=== PATIENT | male | born 1960 | race Caucasian/White ===

== ENCOUNTER → 2017-02-19 | Outpatient (CLI) | payer OTHER ==
[2017-02-19 12:42] LABS: BICARBONATE 27.4 MEQ/L (21.0-32.0)
== END ==
LOC: CLAB 11:33
PROVIDERS: ATTEND Nurse Practitioner Family
DX: I10 Essential (primary) hypertension (principal)
CPT/HCPCS: 36415; 80048

== ENCOUNTER 2017-04-23 08:42 | Emergency (ER) | payer OTHER ==
[~2017-04-23] VITALS: Ht 167.6 cm; Wt 80.0 kg
[~2017-04-23 08:42] MED LIST: FURO1TAB62 PO; GLIP10TA6 PO; GLUCTES27; LISI40TA PO; METF1000 PO; METO-309 PO; POTA10CA PO; PRAV20TA2 PO
[2017-04-23 08:49] VITALS: BP 201/110; PULSE 99; RESP 18; TEMP 98.6
[2017-04-23 08:51] VITALS: BP 213/115
--- NOTE | 2017-04-23 09:55 | RADRPT ---
EXAM DATE/TIME: 04/23/2017 09:46 [facility] COMPARISON: No previous studies available for comparison. INDICATIONS : Pain from fall. MEDICAL HISTORY : None. SURGICAL HISTORY : None. ENCOUNTER: Initial ACUITY: 1 week PAIN SCORE: 3/10 LOCATION: Lower back. FINDINGS: AP and lateral views of the lumbar spine show normal a mild scoliotic curvature with concavity toward s the patient's right centered at L3-L4. No anterolisthesis or retrolisthesis. Diffuse anterior osteo phyte production is seen some of which are bridging in nature. Vertebral body heights are maintained. Disc space heights are relatively well-maintained. Paraspinal soft tissues are unremarkable. Venous calcifications overlie the pelvis. CONCLUSION: No acute disease. Chris Solitario Jr., MD on April 23, 2017 at 9:52 Board Certified Radiologist. This report was verified electronically.
[2017-04-23 09:56] VITALS: BP 175/102
[2017-04-23] MEDS ORDERED: CEPH-460 PO (10:03)
[2017-04-23] MEDS ORDERED: BACT800T5 PO (10:03)
--- NOTE | 2017-04-23 10:03 | PD ---
HPI Chief Complaint: Skin Problem Time Seen by Provider: 09:13 Travel History International Travel<30 days: No Contact w/Intl Traveler<30days: No Traveled to known affect area: No History of Present Illness HPI This is a 56-year-old male who has a history of diabetes who presents to the emergency department having injured himself when he was getting off a bus scraping his right leg on a ramp about a week ago. Since then his wound has gotten increasingly red, swollen, with some yellow discharge, constant, moderate severity. He had no fevers or chills. When he fell he landed directly on his low back. He said some low back pain since and has had trouble lying down. He's been able to walk without difficulty. He denies any numbness or weakness. [facility] Past Medical History Narrative Medical diabetes htn Diabetes: Yes Social History Tobacco Use: No Review of Systems Except as stated in HPI: all other systems reviewed are Neg Physical Exam Narrative GENERAL:Well appearing, no acute distress SKIN: 9 cm linear laceration along the right anterior distal tibia with granulation tissue and a 7 cm surrounding area of warmth and erythema. No fluctuance. Areas discrete with No streaking up the leg. HEAD: Atraumatic. Normocephalic. EYES: Pupils equal and round. No injection or drainage. ENT: Moist mucous membranes NECK: Trachea midline. CARDIOVASCULAR: Regular rate and rhythm. No murmur appreciated. RESPIRATORY: Clear to auscultation. Breath sounds equal bilaterally. GASTROINTESTINAL: Abdomen soft, non-tender, nondistended. MUSCULOSKELETAL: Tender to palpation over the lower lumbar spine NEUROLOGICAL: Awake and alert. No obvious cranial nerve deficits. Moving all extremities. PSYCHIATRIC: Appropriate mood and affect; insight and judgment normal. Data Data Last Documented VS Vital Signs Date Time Temp Pulse Resp B/P (MAP) Pulse Ox O2 Delivery O2 Flow Rate FiO2 04/23/17 09:56 175/102 (126) 04/23/17 08:49 98.6 99 18 Orders Orders Spine, Lumbar - Ltd (Ap & Lat) (04/23/17 ) [facility] Medical Decision Making Medical Screen Exam Complete: Yes Emergency Medical Condition: Yes Interpretation(s) X-ray: No acute fracture Differential Diagnosis Compression fracture, spinous process fracture, cellulitis, wound infection Narrative Course This is a 56-year-old male who presents to the emergency department with a wound infection. He has a discrete area of redness around a healing wound on his right distal tibia. He is nontoxic appearing. He is also complaining of some lower back pain following his fall. X-ray was reassuring with no evidence of compression fracture. I think patient can safely be discharged with oral antibiotic therapy and he was instructed on wound care. Diagnosis Primary Impression: Wound infection Patient Instructions: General Instructions Additional Instructions: If you develop fever, increasing redness, warmth, or spreading of your infection , or severe pain return to the emergency department immediately as you may require antibiotics through your IV. Complete your course of antibiotics as prescribed. Med/Other Pt SpecificInfo: Prescription(s) given Scripts Sulfamethoxazole-Trimethoprim (Bactrim DS) 800-160 Mg Tab 1 TAB PO BID for Infection, #20 TAB 0 Refills Prov: Cristiane Ahuja MD 04/23/17 Cephalexin (Keflex) 500 Mg Cap 500 MG PO Q12H for Infection, #20 CAP 0 Refills Prov: Cristiane Ahuja MD 04/23/17 Disposition: 01 DISCHARGE HOME Condition: Stable Cristiane Ahuja MD Apr 23, 2017 10:03
[2017-05-07] MEDS ORDERED: LISI40TA PO (10:37)
[2017-05-07] MEDS ORDERED: METO25TA3 PO (10:37)
[2017-05-07] MEDS ORDERED: GLUCTES27 (10:37)
[2017-05-07] MEDS ORDERED: GLIP10TA6 PO (10:37)
[2017-05-07] MEDS ORDERED: METF1000 PO (10:37)
[2017-05-07] MEDS ORDERED: POTA10CA PO (10:37)
[2017-05-07] MEDS ORDERED: PRAV20TA2 PO (10:37)
[2017-05-07] MEDS ORDERED: FURO1TAB62 PO (10:37)
[2017-05-07] MEDS ORDERED: LISI-515 PO (10:55)
== END 2017-04-23 10:38 | disposition home or self-care (01) ==
LOC: NEPD 08:42
DX: L08.9 Local infection of the skin and subcutaneous tissue, unspecified (principal); M54.5 Low back pain; E11.9 Type 2 diabetes mellitus without complications; W17.89XA Other fall from one level to another, initial encounter; Y92.811 Bus as the place of occurrence of the external cause
CPT/HCPCS: 72100; 99284

== ENCOUNTER → 2017-04-30 | Outpatient (CLI) | payer OTHER ==
[~2017-04-30] MED LIST changes: +BACT800T5 PO; +CEPH-460 PO; +LISI-515 PO; +METO25TA3 PO
[2017-04-30 10:38] LABS: ANION GAP 9 MEQ/L (5-15); BICARBONATE 24.5 MEQ/L (21.0-32.0); CHLORIDE 97 MEQ/L (98-107); GLOMERULAR FILTRATION RATE 79 ML/MIN (>89); GLUCOSE,FASTING 195 MG/DL (74-99); POTASSIUM 4.3 MEQ/L (3.5-5.1); SODIUM (NA) 130 MEQ/L (136-145)
[2017-04-30 10:45] LABS: BLOOD UREA NITROGEN 14 MG/DL (7-18); HDL CHOLESTEROL 35.3 MG/DL (40.0-60.0); LDL CHOLESTEROL 60 MG/DL (0-99)
[2017-04-30 16:22] LABS: HEMOGLOBIN A1b 2.3 %; HEMOGLOBIN LA1C 2.5 %
== END ==
LOC: CLAB 09:57
PROVIDERS: ATTEND Nurse Practitioner Family
DX: E78.5 Hyperlipidemia, unspecified (principal); E11.9 Type 2 diabetes mellitus without complications; I10 Essential (primary) hypertension
CPT/HCPCS: 36415; 80048; 80061; 83036

== ENCOUNTER → 2017-05-12 | Outpatient (CLI) | payer OTHER ==
[~2017-05-12] MED LIST changes: -LISI40TA PO; -METO-309 PO
--- NOTE | 2017-05-12 12:09 | RADRPT ---
EXAM DATE/TIME: 05/12/2017 10:29 [facility] COMPARISON: No previous studies available for comparison. INDICATIONS : Visible mass/bulging in abdomen. MEDICAL HISTORY : Hypertension. Diabetes. SURGICAL HISTORY : None. ENCOUNTER: Initial ACUITY: 1 week PAIN SCORE: 0/10 LOCATION: Abdomen. MEASUREMENTS: LIVER: 15.3 cm length COMMON DUCT: 5 mm RIGHT KIDNEY: 14.5 x 5.0 x 5.9 cm LEFT KIDNEY: 14.5 x 6.2 x 5.2 cm SPLEEN: 11.7 cm length AORTA: 1.7cm maximal FINDINGS: LIVER: Normal echotexture without focal lesion or ductal dilatation. COMMON DUCT: No intraluminal mass or stone visualized. GALLBLADDER: Contains no stones, demonstrates no wall thickening or pericholecystic fluid. PANCREAS: Poorly seen RIGHT KIDNEY: No hydronephrosis, stone or mass. LEFT KIDNEY: No hydronephrosis, stone or mass. SPLEEN: No focal lesion. AORTA: Non aneurysmal. IVC: Within normal limits. CONCLUSION: Presumed hernia abdominal wall. Bowel is present beneath this.. Correlation is payam antonio. Brian Parkinson MD FACR on May 12, 2017 at 11:59 Board Certified Radiologist. This report was verified electronically.
== END ==
LOC: HRAD 09:58 → MERGE 10:30
PROVIDERS: ATTEND Family Medicine
DX: R19.01 Right upper quadrant abdominal swelling, mass and lump (principal)
CPT/HCPCS: 76700

== ENCOUNTER 2017-08-17 10:02 | Emergency (ER) | payer OTHER ==
[2017-08-17] VITALS (8 sets, daily range): BP systolic 159–243; BP diastolic 80–119; PULSE 89–114; RESP 14–18; TEMP 98.4; O2SAT 98–99
[~2017-08-17] VITALS: Ht 167.6 cm; Wt 85.0 kg
[2017-08-17] MEDS ORDERED: hydrALAZINE HCL 20 MG/ML VIAL IV PUSH ONE ×2 (11:15→14:30)
--- NOTE | 2017-08-17 11:44 | RADRPT ---
EXAM DATE/TIME: 08/17/2017 11:15 [facility] COMPARISON: No previous studies available for comparison. INDICATIONS : Left facial droop RADIATION DOSE: 56.35 CTDIvol (mGy) MEDICAL HISTORY : Hypertension. Diabetes mellitus type 1. Congestive heart failure. SURGICAL HISTORY : None. ENCOUNTER: Initial ACUITY: 1 day PAIN SCALE: 3/10 LOCATION: cranial TECHNIQUE: Multiple contiguous axial images were obtained of the head. Using automated exposure control and adj ustment of the mA and/or kV according to patient size, radiation dose was kept as low as reasonably a chievable to obtain optimal diagnostic quality images. DICOM format image data is available electro nically for review and comparison. FINDINGS: CEREBRUM: The ventricles are normal for age. No evidence of midline shift, mass lesion, hemorrhage or acute in farction. No extra-axial fluid collections are seen. POSTERIOR FOSSA: The cerebellum and brainstem are intact. The 4th ventricle is midline. The cerebellopontine angle i s unremarkable. EXTRACRANIAL: The visualized portion of the orbits is intact. SKULL: The calvaria is intact. No evidence of skull fracture. CONCLUSION: No acute disease. No evidence of acute infarct, hemorrhage, mass or edema. Arsh Noland MD on August 17, 2017 at 11:41 Board Certified Radiologist. This report was verified electronically.
[2017-08-17 11:53] LABS: AUTOMATED NEUTROPHIL # 7.5 TH/MM3 (1.8-7.7); BASOPHIL # 0.1 TH/MM3 (0-0.2); BASOPHIL % 1.5 % (0.0-2.0); EOSINOPHIL # 0.2 TH/MM3 (0-0.4); EOSINOPHIL % 2.5 % (0.0-4.0); HEMATOCRIT 42.9 % (39.0-51.0); HEMOGLOBIN 14.6 GM/DL (13.0-17.0); LYMPH % 15.2 % (9.0-44.0); LYMPHOCYTE # 1.5 TH/MM3 (1.0-4.8); MEAN CELL VOLUME 86.6 FL (80.0-100.0); MEAN CORPUSCULAR HEMOGLOBIN 29.5 PG (27.0-34.0); MEAN CORPUSCULAR HGB CONC 34.1 % (32.0-36.0); MONO % 4.9 % (0.0-8.0); MONOCYTE # 0.5 TH/MM3 (0-0.9); NEUT % 75.9 % (16.0-70.0); PLATELET COUNT 203 TH/MM3 (150-450); RED BLOOD COUNT 4.96 MIL/MM3 (4.50-5.90); RED CELL DISTRIBUTION WIDTH 13.4 % (11.6-17.2); WHITE BLOOD COUNT 9.9 TH/MM3 (4.0-11.0)
[2017-08-17 12:05] LABS: PROTHROMBIN TIME - PATIENT 10.3 SEC (9.8-11.6)
[2017-08-17 12:13] LABS: ALBUMIN 3.6 GM/DL (3.4-5.0); ALT (GPT) 71 U/L (12-78); AST (GOT) 50 U/L (15-37); BICARBONATE 22.8 MEQ/L (21.0-32.0); BLOOD UREA NITROGEN 12 MG/DL (7-18); CALCIUM 9.2 MG/DL (8.5-10.1); CHLORIDE 101 MEQ/L (98-107); CREATININE 0.87 MG/DL (0.60-1.30); GLOMERULAR FILTRATION RATE 90 ML/MIN (>89); GLUCOSE,RANDOM 267 MG/DL (74-106); SODIUM (NA) 135 MEQ/L (136-145)
[2017-08-17 12:17] LABS: ALKALINE PHOSPHATASE 97 U/L (45-117); TOTAL BILIRUBIN ADULT 0.8 MG/DL (0.2-1.0); TOTAL PROTEIN 7.7 GM/DL (6.4-8.2); TROPONIN I LESS THAN 0.02 NG/ML (0.02-0.05)
--- NOTE | 2017-08-17 12:31 | RADRPT ---
EXAM DATE/TIME: 08/17/2017 11:56 [facility] COMPARISON: CHEST SINGLE AP, December 21, 2016, 12:50. INDICATIONS : Facial swelling- No chest complaints. MEDICAL HISTORY : Congestive heart failure. Hypertension Diabetes. SURGICAL HISTORY : None. ENCOUNTER: Initial ACUITY: 3 days PAIN SCORE: 0/10 LOCATION: Bilateral chest FINDINGS: A single view of the chest demonstrates the lungs to be symmetrically aerated without evidence of mas s, infiltrate or effusion. The cardiomediastinal contours are unremarkable. Osseous structures are intact. CONCLUSION: Normal examination for a patient of this age. Korey Pradhan MD on August 17, 2017 at 12:29 Board Certified Radiologist. This report was verified electronically.
--- NOTE | 2017-08-17 12:42 | PD ---
HPI Chief Complaint: Eye Problems/Injury Time Seen by Provider: 10:44 Travel History International Travel<30 days: No Contact w/Intl Traveler<30days: No Traveled to known affect area: No History of Present Illness HPI This is a 56-year-old gentleman history of hypertension, diabetes pelvis, presents today with complaints of inability to close his left eye 2 days. Patient states that he's not been able to close his left upper eyelid for 2 days. He states he first thought it was an infection. He denies any headache. He denies any other neuro symptoms. Please note that the patient's blood pressure is extremely high. He states that his primary physician decreased his blood pressure medicine recently. The patient denies any recent viral illnesses. There are no other complaints time my examination. PFSH Past Medical History Congestive Heart Failure: Yes Diabetes: Yes Patient Takes Glucophage: Yes Diminished Hearing: No Hypertension: Yes Social History Alcohol Use: Yes (OCC) Tobacco Use: No Substance Use: No Allergies-Medications (Allergen,Severity, Reaction): Coded Allergies: No Known Allergies (Unverified , 05/10/17) Reported Meds & Prescriptions Reported Meds & Active Scripts Active Doxycycline Hyclate 100 Mg Cap 100 Mg PO BID Acyclovir 400 Mg Tab 400 Mg PO 5 TIMES A DAY 10 Days Prednisone 20 Mg Tab 20 Mg PO DIRECTED 40 MG twice a day x 3 days, then 20 MG daily x 3 days, then 10 MG daily x 3 days Lisinopril 20 Mg Tab 20 Mg PO BID Pravastatin 20 Mg Tab 20 Mg PO HS Chet Contour Next Blood Test Strips (Blood Glucose Test Strips) 1 Kiersten Kiersten 1 Strip .ROUTE TID Potassium Chloride ER (Potassium Chloride) 10 Meq Cap 10 Meq PO DAILY Lasix (Furosemide) 20 Mg Tab 20 Mg PO DAILY Glipizide 10 Mg Tab 10 Mg PO BIDAC Take 30 minutes before a meal Metformin (Metformin HCl) 1,000 Mg Tab 1,000 Mg PO BIDPC With meals Metoprolol Tartrate 25 Mg Tab 25 Mg PO BID Review of Systems Except as stated in HPI: all other systems reviewed are Neg General / Constitutional: No: Fever, Chills Eyes: Positive: Other (inability to close left upper eyelid), No: Drainage, Foreign Body Sensation HENT: No: Headaches, Neck Pain Cardiovascular: No: Chest Pain or Discomfort, Palpitations Respiratory: No: Cough, Shortness of Breath Gastrointestinal: No: Nausea, Vomiting, Abdominal Pain Genitourinary: No: Dysuria, Nocturia Musculoskeletal: No: Weakness, Pain Skin: No Rash, No Lesions Neurologic: No: Weakness, Dizziness, Headache, Change in Mentation Physical Exam Narrative GENERAL: Well-nourished, well-developed patient. SKIN: Focused skin assessment warm/dry. HEAD: Normocephalic. EYES: No scleral icterus. No injection or drainage. NECK: Supple, trachea midline. No JVD or lymphadenopathy. CARDIOVASCULAR: Regular rate and rhythm without murmurs, gallops, or rubs. RESPIRATORY: Breath sounds equal bilaterally. No accessory muscle use. GASTROINTESTINAL: Abdomen soft, non-tender, nondistended. MUSCULOSKELETAL: No cyanosis, or edema. Right lower shimmy has chronic venous stasis changes with a small healing wound. Patient states it was started as a silver dollar size and is now shrunk to the size. BACK: Nontender without obvious deformity. No CVA tenderness. NEUROLOGICAL: Awake and alert. Left upper extremity facial droop. Questionable left sided drooping of the mouth. Motor and sensory grossly within normal limits. Five out of 5 muscle strength in all muscle groups. Normal speech. Data Data Last Documented VS Vital Signs Date Time Temp Pulse Resp B/P (MAP) Pulse Ox O2 Delivery O2 Flow Rate FiO2 08/17/17 16:07 114 18 159/109 (126) 98 Room Air 08/17/17 10:03 98.4 Orders Orders Electrocardiogram (08/17/17 10:44) Complete Blood Count With Diff (08/17/17 10:44) Comprehensive Metabolic Panel (08/17/17 10:44) Ckmb (Isoenzyme) Profile (08/17/17 10:44) Troponin I (08/17/17 10:44) Prothrombin Time / Inr (Pt) (08/17/17 10:44) Act Partial Throm Time (Ptt) (08/17/17 10:44) Chest, Single Ap (08/17/17 10:44) Ct Brain W/O Iv Contrast(Rout) (08/17/17 10:44) Iv Access Insert/Monitor (08/17/17 10:44) Ecg Monitoring (08/17/17 10:44) Oximetry (08/17/17 10:44) Hydralazine Inj (Apresoline Inj) (08/17/17 11:15) CKMB (08/17/17 10:50) CKMB% (08/17/17 10:50) Metoprolol Tartrate Inj (Lopressor Inj) (08/17/17 13:00) Hydralazine Inj (Apresoline Inj) (08/17/17 14:30) Mri Brain W/O Contrast (08/17/17 ) Wound Culture And Gram Stain (08/17/17 16:51) Labs Laboratory Tests Test 08/17/17 10:50 White Blood Count 9.9 TH/MM3 Red Blood Count 4.96 MIL/MM3 Hemoglobin 14.6 GM/DL Hematocrit 42.9 % Mean Corpuscular Volume 86.6 FL Mean Corpuscular Hemoglobin 29.5 PG Mean Corpuscular Hemoglobin Concent 34.1 % Red Cell Distribution Width 13.4 % Platelet Count 203 TH/MM3 Mean Platelet Volume 9.0 FL Neutrophils (%) (Auto) 75.9 % Lymphocytes (%) (Auto) 15.2 % Monocytes (%) (Auto) 4.9 % Eosinophils (%) (Auto) 2.5 % Basophils (%) (Auto) 1.5 % Neutrophils # (Auto) 7.5 TH/MM3 Lymphocytes # (Auto) 1.5 TH/MM3 Monocytes # (Auto) 0.5 TH/MM3 Eosinophils # (Auto) 0.2 TH/MM3 Basophils # (Auto) 0.1 TH/MM3 CBC Comment AUTO DIFF Differential Comment AUTO DIFF CONFIRMED Prothrombin Time 10.3 SEC Prothromb Time International Ratio 1.0 RATIO Activated Partial Thromboplast Time 23.0 SEC Blood Urea Nitrogen 12 MG/DL Creatinine 0.87 MG/DL Random Glucose 267 MG/DL Total Protein 7.7 GM/DL Albumin 3.6 GM/DL Calcium Level 9.2 MG/DL Alkaline Phosphatase 97 U/L Aspartate Amino Transf (AST/SGOT) 50 U/L Alanine Aminotransferase (ALT/SGPT) 71 U/L Total Bilirubin 0.8 MG/DL Sodium Level 135 MEQ/L Potassium Level 4.2 MEQ/L Chloride Level 101 MEQ/L Carbon Dioxide Level 22.8 MEQ/L Anion Gap 11 MEQ/L Estimat Glomerular Filtration Rate 90 ML/MIN Total Creatine Kinase 127 U/L Creatine Kinase MB 1.8 NG/ML Troponin I LESS THAN 0.02 NG/ML MDM Medical Decision Making Medical Screen Exam Complete: Yes Emergency Medical Condition: Yes Differential Diagnosis Coyne's palsy versus hypertensive emergency versus CVA Narrative Course 56-year-old male with history of hypertension, diabetes mellitus, presents today with points of left sided eyelid droop. The patient also has a left sided facial droop. The patient has no headache. There is no dizziness. He does have a history of hypertension and his blood pressure was extremely high when he arrived. CT of the brain shows no evidence of acute process. MRI of the brain with and without contrast shows no acute infarct. There are chronic changes noted that could be consistent with micro-vascular disease. I have offered the patient admission and recommended admission as he does have uncontrolled hypertension and she received 2 doses of IV hydralazine one day's of Lopressor. He is refusing admission at this time. He'll be asked to sign out AGAINST MEDICAL ADVICE. He understands that this may not be Coyne's palsy and this could be a neurologic emergency or even related to his blood pressure. He is adamant about going home. previous to go back to his previous blood pressure regimen. He is instructed to follow up with a primary doctor. He's been told he can come back at any time. He will be given prescription for doxycycline for his chronic right lower extremity healing wound. Cultures have been sent off at this time. AMA: The risks of leaving against medical advice without further evaluation treatment were discussed with the patient. These risks include cardiac dysfunction, cardiac dysrhythmia, possible heart attack, possible stroke or . The patient indicated understanding of these risks and appeared to have the capacity to make this decision. Diagnosis Primary Impression: Uncontrolled hypertension Additional Impressions: left sided facial droop question Coyne's palsy. Diabetes mellitus right bolaños chronic draining wound. Additional Instructions: Return at any time, especially if you're worse. Go back to her previous blood pressure regiment and follow up with primary care physician. Med/Other Pt SpecificInfo: Prescription(s) given Scripts Doxycycline Hyclate (Doxycycline Hyclate) 100 Mg Cap 100 MG PO BID for Infection, #20 CAP 0 Refills Prov: Alistair Rogers MD 08/17/17 Acyclovir (Acyclovir) 400 Mg Tab 400 MG PO 5 TIMES A DAY for Mgmt Viral Infection for 10 Days, #50 TAB 0 Refills Prov: Alistair Rogers MD 08/17/17 Prednisone (Prednisone) 20 Mg Tab 20 MG PO DIRECTED for Inflammation, #12 TAB 0 Refills 40 MG twice a day x 3 days, then 20 MG daily x 3 days, then 10 MG daily x 3 days Prov: Alistair Rogers MD 08/17/17 Disposition: 07 AGAINST MEDICAL ADVICE Condition: Stable Alistair Rogers MD Aug 17, 2017 12:42
[2017-08-17] MEDS ORDERED: METOPROLOL TARTRATE 5 MG/5 ML VIAL IV PUSH ONE (13:00)
--- NOTE | 2017-08-17 16:22 | RADRPT ---
EXAM DATE/TIME: 08/17/2017 15:35 [facility] COMPARISON: No previous studies available for comparison. INDICATIONS : CVA. Left eye lid closed. MEDICAL HISTORY : Hypertension. Diabetes mellitus type 2. SURGICAL HISTORY : None. ENCOUNTER: Subsequent ACUITY: 1 day PAIN SCORE: 0/10 LOCATION: head. TECHNIQUE: Multiplanar, multisequence MRI of the brain was performed without contrast. FINDINGS: CEREBRUM: The ventricles are normal for age. No evidence of midline shift, mass lesion, hemorrhage or acute in farction. No extraaxial fluid collections are seen. The pituitary gland and suprasellar cistern are normal in configuration. WHITE MATTER: A few small signal abnormalities are seen in the white matter. POSTERIOR FOSSA: T2 hyperintensity without restricted diffusion is identified centrally within the belkis. The cerebellu m and brainstem are otherwise intact. The 4th ventricle is midline. The cerebellopontine angle is un remarkable. The cerebellar tonsils are normal in position. DIFFUSION IMAGING: No focal areas of restricted diffusion are seen. No evidence of acute infarction. EXTRACRANIAL: The visualized portions of the orbits and paranasal sinuses are unremarkable. CONCLUSION: 1. No evidence of acute infarct, hemorrhage mass or edema. 2. T2 hyperintense changes within the brainstem most characteristic of chronic microvascular ischemic change. 3. Otherwise unremarkable exam. Arsh Noland MD on August 17, 2017 at 16:18 Board Certified Radiologist. This report was verified electronically.
[2017-08-17] MEDS ORDERED: ACYC400T PO (16:51)
[2017-08-17] MEDS ORDERED: PRED20 PO (16:51)
[2017-08-17] MEDS ORDERED: DOXY100C PO (16:51)
--- NOTE | 2017-08-18 15:18 | EKG ---
Date Performed: 08/17/2017 Time Performed: 11:01:38 PTAGE: 56 years EKG: Sinus rhythm SEPTAL MYOCARDIAL INFARCTION ABNORMAL ECG NO PREVIOUS TRACING DOCTOR: Aj Garcia Interpretating Date/Time 08/18/2017 15:15:58
== END 2017-08-17 17:44 | disposition left against medical advice (07) ==
LOC: NEPE 10:02
DX: I11.0 Hypertensive heart disease with heart failure (principal); I50.9 Heart failure, unspecified; R29.810 Facial weakness; E11.9 Type 2 diabetes mellitus without complications; S81.801A Unspecified open wound, right lower leg, initial encounter; B95.61 Methicillin susceptible Staphylococcus aureus infection as the cause of diseases classified elsewhere; R94.31 Abnormal electrocardiogram [ECG] [EKG]; X58.XXXA Exposure to other specified factors, initial encounter; Z79.84 Long term (current) use of oral hypoglycemic drugs
CPT/HCPCS: 70450; 70551; 71010; 80053; 82550; 82552; 84484; 85025; 85610; 85730; 86403; 87070; 87186; 93005; 96374; 96375; 96376; 99285; J0360; 87205